=== PATIENT | male | born 1940 | race African-American/Black ===

== ENCOUNTER → 2016-07-11 | Outpatient (CLI) | payer MEDICARE, OTHER | LOC: RAD 08:39 | PROVIDERS: ATTEND Internal Medicine Medical Oncology | DX: C73 Malignant neoplasm of thyroid gland (principal); C61 Malignant neoplasm of prostate | CPT/HCPCS: 70491; 71260; 74177 ==

== ENCOUNTER → 2017-04-07 | Outpatient (CLI) | payer MEDICARE, OTHER ==
--- NOTE | 2017-04-07 13:13 | RADIOLOGY REPORT (SQ) ---
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 Images reviewed with lung, soft tissue and bone windows. Reconstructed coronal and sagittal MPR images reviewed. All images stored on PACS. All CT scanners at this facility use dose modulation, iterative reconstruction, and/or weight based d osing when appropriate to reduce radiation dose to as low as reasonably achievable (ALARA). [facility]: Dose Right [facility]: CareDose [facility]: Dose Right [facility]: Teradose 4D [facility]: [employer] CONTRAST TYPE AND DOSE: See separate report of the same date. RENAL FUNCTION: See separate report of the same date. RADIATION DOSE: . LIMITATIONS: None. FINDINGS: LUNGS AND PLEURA: No opacities, nodules, masses. No pneumothorax. No effusions. HILAR AND MEDIASTINAL STRUCTURES: Subcarinal node has increased to 2.1 x 2.1 cm. Smaller mediastinal and bilateral hilar nodes more conspicuous but difficult to better quantify. HEART AND VASCULAR STRUCTURES: No aneurysm or dissection. No central pulmonary emboli. No pericardi al effusion. HARDWARE: None in the chest. UPPER ABDOMEN: See separate report of the CT of the abdomen. THYROID AND OTHER SOFT TISSUES: Axillary adenopathy. Largest node left axilla 3.9 x 1.7 cm, previous ly 3.5 x 1.6 cm. BONES: No significant finding. OTHER: No other significant finding. IMPRESSION: Slight interval progression of adenopathy. TECHNICAL DOCUMENTATION: JOB ID: [id number] Quality ID # [id number]: Final reports with documentation of one or more dose reduction techniques (e.g., Au tomated exposure control, adjustment of the mA and/or kV according to patient size, use of iterative reconstruction technique) 2010 [employer]- All Rights Reserved
--- NOTE | 2017-04-07 13:24 | RADIOLOGY REPORT (SQ) ---
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 No oral contrast. Images reviewed with lung, soft tissue, and bone windows. Reconstructed coronal and sagittal MPR images reviewed. Delayed images for evaluation of the urinary system also acquired. All images stored on PACS. All CT scanners at this facility use dose modulation, iterative reconstruction, and/or weight based d osing when appropriate to reduce radiation dose to as low as reasonably achievable (ALARA). [facility]: Dose Right [facility]: CareDose [facility]: Dose Right [facility]: Teradose 4D [facility]: [employer] CONTRAST TYPE AND DOSE: contrast/concentration: Isovue 370.00 mg/ml; Total Contrast Delivered: 76.0 ml; Total Saline Delivered: 67.0 ml RENAL FUNCTION: Creatinine 0.9 RADIATION DOSE: Up-to-date CT equipment and radiation dose reduction techniques were employed. CTDIv ol: 4.6 - 4.8 mGy. DLP: 627 mGy-cm.. LIMITATIONS: None. FINDINGS: LOWER CHEST: No significant findings. No nodules or infiltrates. LIVER: Benign cysts. SPLEEN: Normal size. Subcentimeter low-density lesion too small to characterize. PANCREAS: No masses. No significant calcifications. No adjacent inflammation or peripancreatic fluid collections. Pancreatic duct not dilated. GALLBLADDER: No identified stones by CT criteria. No inflammatory changes to suggest cholecystitis. ADRENAL GLANDS: No significant masses or asymmetry. RIGHT KIDNEY AND URETER: No solid masses. No significant calcifications. No hydronephrosis or hyd roureter. LEFT KIDNEY AND URETER: No solid masses. No significant calcifications. No hydronephrosis or hydr oureter. AORTA AND VESSELS: No aneurysm. No dissection. Renal arteries, SMA, celiac without stenosis. RETROPERITONEUM: Increasing adenopathy with 1 of the larger nodes between the aorta and lower pole le ft kidney measuring 2.9 x 2.4 cm, previously 1.8 x 1.8 cm. BOWEL AND PERITONEAL CAVITY: Scattered mesenteric nodes measuring up to about 1 cm in short axis. APPENDIX: Not visualized. PELVIS: Pelvic adenopathy, 1 of the larger nodes in the left external iliac chain measuring 2.4 x 2.4 cm, previously 2.2 x 2.2 cm. ABDOMINAL WALL: Large ventral hernia just superior to the umbilicus measuring at least 6 cm in diamet er and containing nondilated small bowel. BONES: No acute findings. OTHER: Inguinal adenopathy, largest on the left 2.1 x 4.8 cm, previously 1.9 x 3.9 cm. IMPRESSION: Progressing adenopathy. Interval development of a large ventral hernia. TECHNICAL DOCUMENTATION: JOB ID: [id number] Quality ID # 436: Final reports with documentation of one or more dose reduction techniques (e.g., Au tomated exposure control, adjustment of the mA and/or kV according to patient size, use of iterative reconstruction technique) 2010 [employer]- All Rights Reserved
== END ==
LOC: RAD 09:12
PROVIDERS: ATTEND Internal Medicine Medical Oncology
DX: C91.10 Chronic lymphocytic leukemia of B-cell type not having achieved remission (principal); C73 Malignant neoplasm of thyroid gland; C61 Malignant neoplasm of prostate
CPT/HCPCS: 71260; 74177; 82565

== ENCOUNTER → 2019-01-04 | Outpatient (CLI) | payer MEDICARE, OTHER ==
--- NOTE | 2019-01-04 14:48 | EKG REPORT ---
SEVERITY:- OTHERWISE NORMAL ECG - SINUS RHYTHM LOW VOLTAGE IN FRONTAL LEADS : Confirmed by: Rebecca Hebert MD 04-Jan-2019 14:47:39
== END ==
LOC: OD 11:06
PROVIDERS: ATTEND Internal Medicine Medical Oncology
DX: C91.90 Lymphoid leukemia, unspecified not having achieved remission (principal); C61 Malignant neoplasm of prostate
CPT/HCPCS: 93005; 93010

== ENCOUNTER 2019-07-28 06:33 | Observation (INO) | payer MEDICARE, OTHER ==
[2019-07-21 09:26] LABS: HEMATOCRIT 43.6 % (37.9-51.0); HEMOGLOBIN 14.8 g/dL (13.5-17.0); MEAN CORPUSCULAR HEMOGLOBIN 29.2 pg (27.0-33.4); MEAN CORPUSCULAR VOLUME 86 fl (80-97); PLATELET COUNT 135 10^3/uL (150-450); RED BLOOD COUNT 5.06 10^6/uL (4.35-5.55); RED CELL DISTRIBUTION WIDTH 14.4 % (11.5-14.0); WHITE BLOOD COUNT 4.3 10^3/uL (4.0-10.5)
[2019-07-21 09:48] LABS: ANION GAP 6 (5-19); BLOOD UREA NITROGEN 18 mg/dL (7-20); CARBON DIOXIDE 29 mmol/L (22-30); CHLORIDE 107 mmol/L (98-107); GLUCOSE 91 mg/dL (75-110); POTASSIUM 4.3 mmol/L (3.6-5.0)
--- NOTE | 2019-07-21 10:09 | RADIOLOGY REPORT (SQ) ---
EXAM DESCRIPTION: CHEST PA/LATERAL COMPLETED DATE/TIME: 07/21/2019 9:22 am REASON FOR STUDY: PRE-OP COMPARISON: 05/01/2009 EXAM PARAMETERS: NUMBER OF VIEWS: two views TECHNIQUE: Digital Frontal and Lateral radiographic views of the chest acquired. RADIATION DOSE: NA LIMITATIONS: none FINDINGS: LUNGS AND PLEURA: No opacities, masses or pneumothorax. No pleural effusion. MEDIASTINUM AND HILAR STRUCTURES: No masses or contour abnormalities. HEART AND VASCULAR STRUCTURES: Heart normal size. No evidence for failure. BONES: No acute findings. Degenerative changes at the shoulders. HARDWARE: Surgical clips overlie neck. OTHER: No other significant finding. IMPRESSION: No evidence of acute cardiopulmonary process. TECHNICAL DOCUMENTATION: JOB ID: [id number] 2010 [employer]- All Rights Reserved Reading location - IP/workstation name: [email or web address]
--- NOTE | 2019-07-21 13:04 | EKG REPORT ---
SEVERITY:- BORDERLINE ECG - SINUS RHYTHM BORDERLINE T ABNORMALITIES, DIFFUSE LEADS : Confirmed by: Demarcus Degroot MD 21-Jul-2019 13:03:12
[~2019-07-28 06:33] MED LIST: CEFAZOLIN 1 GM/D5W RTU 1 GM/50 ML RTUPB IV ONE; CEFAZOLIN 1 GM/D5W RTU 1 GM/50 ML RTUPB IV PRN; LACTATED RINGERS 1000 ML IV PRN; LIDOCAINE 0.5% INJ-PF (5 MG/ML) 50 ML SDV SUBCUT PRN
[2019-07-28] MEDS ORDERED: BUPIVACAINE HCL 0.25 % INJ/PF (2.5 MG/1 ML) 30 ML VIAL ONE (08:17)
[2019-07-28] MEDS ORDERED: BUPIVACAINE INJ/PF LIPOSOME/PF 266 MG/20 ML SDV ONE (08:17)
[2019-07-28] MEDS ORDERED: FENTANYL CITRATE INJ/PF 250 MCG/5 ML AMPULE ONE (08:18)
[2019-07-28] MEDS ORDERED: PROPOFOL INJ 200 MG/20 ML VIAL IV ONE (08:18)
[2019-07-28] MEDS ORDERED: PROMETHAZINE HCL INJ 25 MG/1 ML VIAL IV PRN (09:06)
[2019-07-28] MEDS ORDERED: MEPERIDINE HCL/PF INJ 25 MG/1 ML DISP.SYRIN IV PRN (09:06)
[2019-07-28] MEDS ORDERED: FENTANYL CITRATE INJ/PF 100 MCG/2 ML AMPUL IV PRN ×3 (09:06)
[2019-07-28] MEDS ORDERED: DIPHENHYDRAMINE HCL 50 MG/ML VIAL IV PRN (09:06)
--- NOTE | 2019-07-28 11:01 | Operative Report ---
Operative Report DATE OF SURGERY: 07/28/19 PREOPERATIVE DIAGNOSIS: 1. Moderate-sized abdominal wall hernia. 2. Condyloma acuminatum of the perianal tissue POSTOPERATIVE DIAGNOSIS: Same OPERATION: 1. Open ventral abdominal wall herniorrhaphy with Ventrio ST hernia patch, 8 x 12 cm. 2. Drainage of subcutaneous space. 3. Extensive vision and fulguration of perianal condyloma acuminata SURGEON: CHARLOTTE IVY ANESTHESIA: GA TISSUE REMOVED OR ALTERED: Condyloma acuminatum of the perianal area COMPLICATIONS: None ESTIMATED BLOOD LOSS: 30 cc INTRAOPERATIVE FINDINGS: See below PROCEDURE: The patient was taken from the main holding area to the operating room where general anesthesia was induced. The abdomen was exposed, clipped of hair, Victoria catheter inserted with a drainage of clear yellow urine. The abdominal wall was prepped and draped sterile fashion Betadine. Surgical plan and surgical timeout were conducted. The skin was anesthetized with quarter percent Marcaine. Approximately 12 cm long incision was made in the midline above the palpable hernia which was not incarcerated. Skin flaps laterally were mobilized off of the underlying hernia sac. This was a rather generous hernia sac containing no viscera. We took the level of the dissection all the way down to the intact, fairly normal appearing fascia. The hernia sac was excised in its entirety. We now cleaned up the fascial edges. In the superior right lateral region, there were 2 small holes in the fascia. We took down some sections of retroperitoneal fat in continuity with the falciform ligament. The falciform ligament was tied off with a 0 PDS suture ligature. The peritoneal cavity was inspected visually and found to contain no gross pathology. We now turned our attention to the target hernia defect. The defect was approximately 6 cm in diameter. In the fascia together transversely ap peared to generate less tension than longitudinally. However my plan was to install a mesh into the intraperitoneal position. We cleaned the subcutaneous tissue off of the anterior fascial surface. The 2 small fascial defects superiorly were closed with 0 Prolene suture in [id number] fashion. We now brought onto the field a non- 12 x [address] hernia patch. We oriented it transversely, and proceeded to place 8 sutures in a loop fashion at the 12, 2, 3, 4, 6, 8, 9, 10:00 positions. Suture bites of the fascia were felt to be substantial. Once all the sutures were placed, the mesh was tucked into the peritoneal cavity, then sutures brought up, enabling the mesh to splayed out in a circumferential fashion without folding. We were very satisfied with the configuration of the mesh in the in situ. All knots were secured. There was no significant bleeding. We now closed the free fascial edges transversely with 2 running 0 PDS sutures, thereby covering the mesh entirely. A large Leonides drain was placed in the subcutaneous space. We checked for bleeding there was none. Sponge and needle counts are correct. Drain was secured to skin with a 2-0 Prolene suture, skin approximated with 12 hamilton. 20 cc of dilute Exparel was deployed in the subcutaneous tissue around the midline incision. Sterile dressing was applied. The patient was now rolled in the left lateral position, axillary roll installed. The buttock was exposed satisfactorily for surgical intervention. The findings were significant for extensive, circumferential perianal warts consistent with condyloma acuminata. I anesthetized the perineum, and perianal tissue with quarter percent Marcaine, and Exparel. I now used the suction accompanying electrocautery to remove approximately 65 to 70% of the perianal warts. There were several de-epithelialized areas of the perianal tissue. Bleeding was minimal. Some sections of skin removal abutted the anal verge. Because of the risk of scarring, I did not remove all of the condyloma but primarily focused on the large growths. Specimens were sent to pathology for final analysis. Hemostasis was excellent. 4 x 4's applied. The patient was rolled in the supine position and abdominal binder installed. Victoria catheter was left in place. Patient tolerated the procedure well, extubated, and taken to the recovery in stable condition.
[2019-07-28] MEDS ORDERED: NORMAL SALINE 1000 ML 1,000 ML IV PRN (11:07)
[2019-07-28] MEDS ORDERED: ONDANSETRON HCL INJ/PF 4 MG/2 ML SDV IV PRN (11:18)
[2019-07-28] MEDS ORDERED: KETOROLAC TROMETHAMINE INJ/PF 30 MG/1 ML SDV IV PRN (11:18)
[2019-07-28] MEDS ORDERED: PROMETHAZINE HCL INJ 25 MG/1 ML VIAL ONE (11:25)
[2019-07-28] MEDS: ACETAMINOPHEN INJ/PF 1000 MG/100 ML SDV IV SCH ×2 (12:00→18:22)
[2019-07-28] MEDS ORDERED: ROCURONIUM BROMIDE INJ 50 MG/5 ML VIAL IV ONE (12:10)
[2019-07-28] MEDS ORDERED: DEXAMETHASONE SOD PHOSPHATE INJ 4 MG/1 ML VIAL ONE (12:10)
[2019-07-28] MEDS ORDERED: NEOSTIGMINE METHYLSULFATE 10 MG/10 ML VIAL ONE (12:10)
[2019-07-28] MEDS ORDERED: ONDANSETRON HCL INJ/PF 4 MG/2 ML SDV ONE (12:10)
[2019-07-28] MEDS ORDERED: GLYCOPYRROLATE 1 MG/5 ML VIAL ONE (12:10)
[2019-07-28] MEDS: AMPICILLIN SODIUM/SULBACTAM NA 3 GM in NORMAL SALINE 100 ML IV SCH ×2 (15:57→21:02)
[2019-07-28] MEDS: DOCUSATE SODIUM 100 MG CAPSULE PO SCH (17:51)
[2019-07-28] MEDS: OXYCODONE-ACETAMINOPHEN 5-325 MG TABLET PO PRN (17:55)
[2019-07-29] MEDS: ACETAMINOPHEN INJ/PF 1000 MG/100 ML SDV IV SCH ×2 (01:09→06:44)
[2019-07-29] MEDS: AMPICILLIN SODIUM/SULBACTAM NA 3 GM in NORMAL SALINE 100 ML IV SCH (06:46)
[2019-07-29] MEDS: OXYCODONE-ACETAMINOPHEN 5-325 MG TABLET PO PRN (09:18)
[2019-07-29] MEDS: DOCUSATE SODIUM 100 MG CAPSULE PO SCH (09:19)
[2019-07-29 09:26] VITALS: BP 142/73
--- NOTE | 2019-07-29 10:00 | PDOC DISCHARGE SUMMARY ---
General - Admit/Disc Date/PCP Admission Date/Primary Care Provider: ETHAN MARSH MD Discharge Date: 07/29/19 - Discharge Diagnosis Final Diagnosis: Abdominal wall hernia; anal warts - Assessment Summary: Patient is an 79-year-old Afro-Cuban male with abdominal wall hernia who is brought through ambulatory surgery for repair. The procedure was performed by Dr. Berrios. Patient had a drain in the subcutaneous space left in place. He also had fulguration of multiple anal warts consistent with condyloma acuminatum. Patient was admitted overnight for observation. He did well had his Victoria cath removed started on a diet and ambulated without difficulty. His pain was well managed. By the midday of postoperative day 1 he was felt to receive maximum benefit of hospitalization was discharged home. Follow-up instructions: 1. Patient will take Toradol as needed; prescription provided 2. Patient instructed on drain care and recording output. 3. Patient will follow-up with Dr. Berrios [facility] in 1 week. - Additional Information Resuscitation Status: Full Code Discharge Diet: As Tolerated Discharge Activity: Activity As Tolerated, Balance Activity w/Rest Referrals: [facility] [Provider Group] - 08/05/19 8:15 am Home Medications: Amlodipine Besylate/Benazepril [Lotrel 10-40 mg Capsule] 1 cap PO DAILY 05/14/16 Aspirin [Aspirin EC] 81 mg PO DAILY 05/14/16 Levothyroxine Sodium [Tirosint] 125 mcg PO DAILY 05/14/16 Simvastatin 20 mg PO DAILY 05/14/16 Oxycodone HCl/Acetaminophen [Percocet 5-325 mg Tablet] 1 tab PO ASDIR PRN #25 tablet 05/24/16 History of Present Illiness History of Present Illness: MAX BHAT is a 79 year old male Physical Exam Vital Signs: Temp Pulse Resp BP Pulse Ox 97.8 F 90 16 138/76 H 96 07/29/19 09:22 07/29/19 09:22 07/29/19 09:22 07/29/19 09:22 07/29/19 09:22 Intake & Output 07/28/19 07/29/19 07/30/19 06:59 06:59 06:59 Intake Total 0 1650 Output Total 3760 Balance 0 -2110 Weight 72.57 kg 75.6 kg Results Laboratory Results: WBC 4.3 10^3/uL (4.0-10.5) 07/21/19 08:22 RBC 5.06 10^6/uL (4.35-5.55) 07/21/19 08:22 Hgb 14.8 g/dL (13.5-17.0) 07/21/19 08:22 Hct 43.6 % (37.9-51.0) 07/21/19 08:22 MCV 86 fl (80-97) 07/21/19 08:22 MCH 29.2 pg (27.0-33.4) 07/21/19 08:22 MCHC 34.0 g/dL (32.0-36.0) 07/21/19 08:22 RDW 14.4 % (11.5-14.0) H 07/21/19 08:22 Plt Count 135 10^3/uL (150-450) L 07/21/19 08:22 Sodium 142.2 mmol/L (137-145) 07/21/19 08:22 Potassium 4.3 mmol/L (3.6-5.0) 07/21/19 08:22 Chloride 107 mmol/L (98-107) 07/21/19 08:22 Carbon Dioxide 29 mmol/L (22-30) 07/21/19 08:22 Anion Gap 6 (5-19) 07/21/19 08:22 BUN 18 mg/dL (7-20) 07/21/19 08:22 Creatinine 1.03 mg/dL (0.52-1.25) 07/21/19 08:22 Est GFR ( Amer) > 60 (>60) 07/21/19 08:22 Est GFR (MDRD) Non-Af > 60 (>60) 07/21/19 08:22 Glucose 91 mg/dL (75-110) 07/21/19 08:22 Calcium 10.0 mg/dL (8.4-10.2) 07/21/19 08:22 Impressions: Chest X-Ray 07/21/19 09:16 IMPRESSION: No evidence of acute cardiopulmonary process.
== END 2019-07-29 12:10 | disposition home or self-care (01) ==
LOC: OROUT 06:33 → 4N 11:01 → INTOOBSV 11:01 → 4N 13:21
PROVIDERS: ADMIT Surgery; ATTEND Surgery
DX: K43.9 Ventral hernia without obstruction or gangrene (principal); A63.0 Anogenital (venereal) warts; Z79.899 Other long term (current) drug therapy; Z85.6 Personal history of leukemia; D01.0 Carcinoma in situ of colon; I10 Essential (primary) hypertension; E78.00 Pure hypercholesterolemia, unspecified; E07.9 Disorder of thyroid, unspecified; R59.0 Localized enlarged lymph nodes; J18.9 Pneumonia, unspecified organism; Z01.818 Encounter for other preprocedural examination
CPT/HCPCS: 49560; 49568; 46924; 93005; 36415; 85027; 80048; 88305 ×2; 71046; 93010; J0690; J3490 ×2; J1100; A9270 ×3; J3010; J0295 ×2; J1885; J2710; J2550; J2405; J7050 ×2; J7030; J2704; J0131 ×2; C9290; J7120